=== PATIENT | female | born 1945 | race African-American/Black ===

== ENCOUNTER → 2023-10-11 11:17 | Outpatient (CLI) | payer MEDICARE, SELFPAY ==
--- NOTE | ~2023-10-11 | XR_ITS ---
XR chest 2V DATE: 10/11/2023 11:56 INDICATION: Productive cough for 11 days. Nonsmoker. TECHNIQUE: 2 views COMPARISON: None FINDINGS: Heart size is within normal range. Is aortic arch calcification, mild aortic unfolding. No hilar or mediastinal enlargement. The lungs appear moderately hyperinflated but clear of infiltrate or consolidation. No pleural effusion or pulmonary vascular congestion or pneumothorax. Osteopenia. Mild dextroscoliosis and degenerative spurring of the thoracic and lumbar spine IMPRESSION: Moderate hyperinflation; no active cardiopulmonary disease Aortic calcification Reviewed, dictated and finalized at location [facility]. [facility] [employer]
== END ==
PROVIDERS: PCP Nurse Practitioner Family; Visit Provider Nurse Practitioner Family
DX: R05.8 Other specified cough (principal); I70.0 Atherosclerosis of aorta; J98.4 Other disorders of lung
CPT/HCPCS: 71046

== ENCOUNTER 2025-03-05 14:32 | Emergency (ER) | payer MEDICARE, BC, SELFPAY ==
--- NOTE | 2025-03-05 14:38 | ED_ITS ---
HPI - General Adult General Chief complaint: Headache Stated complaint: headache/ balance is off Time Seen by Provider: 03/05/25 14:41 Source: patient, RN notes reviewed and old records reviewed Mode of arrival: ambulatory Limitations: no limitations History of Present Illness HPI narrative: 79-year-old female presents to the [facility] with complaints of a headache, feeling off balance, fatigue. Patient states has been getting worse for approximately 3 weeks. Has taken Tylenol Tried getting in with primary care, was told to come to the Urgent Care for an evaluation Denies any chest pain, shortness of breath. Related Data Allergies Allergy/AdvReac Type Severity Reaction Status Date / Time codeine Allergy Mild Itching Verified 03/05/25 15:18 Review of Systems Review of Systems: All systems reviewed & are unremarkable except as noted in HPI and below Constitutional: Constitutional: Reports no additional constitutional complaints ENT: Reports system reviewed and no additional complaints, except as documented Cardiovascular: Cardiovascular: Reports no additional cardiovascular complaints, Denies chest pain and Denies dyspnea Respiratory: Respiratory: Reports no additional respiratory complaints, Denies chest congestion, Denies cough and Denies dyspnea Musculoskeletal: Musculoskeletal: Reports no additional musculoskeletal complaints Integumentary/Breasts: Skin/Breast: Reports system reviewed and no additional complaints, except as docu Neurologic: Reports as per HPI PMFSH Comments At the time of my signature, I reviewed and agree with the nursing past medical, surgical, social, and family history. There is no relevant family history pertinent to the patient complaint. Exam Const: General: cooperative, healthy appearing, comfortable, no acute dist ress, well developed, alert and well nourished Nutritional Appearance: well nourished Orientation/consciousness: patient oriented x3 Limitations: no limitations HENMT: Head: normal to inspection Ears: hearing grossly normal bilaterally, external ears normal, TM's normal bilaterally, EAC's normal, mastoids normal and no periauricular adenopathy Throat: posterior oropharynx normal, uvula midline and no uvular edema Eyes: General: appearance normal, both eyes and all related structures Alignment and Position: alignment normal Neck: Neck: normal visual inspection, full ROM, no lymphadenopathy and no meningeal signs Chest: Chest palpation & inspection: normal inspection of the chest Resp: Effort & Inspection: normal respiratory effort and able to speak in complete sentences Auscultation: clear to auscultation bilaterally, no crackles, no rales, no rhonchi and no wheezes Cardio: Rate: bradycardic Skin: General skin exam: normal color and no rashes or lesions noted Neuro: General: patient oriented x3, gait normal, moves all extremities and no meningeal signs Cognition (Neuro): normal cognition Speech: normal speech Gait exam (Neuro): Normal gait present Extrem: General: normal to inspection, full ROM, capillary refill normal and normal gait Psych: Appearance: grossly normal and well kempt Mental Status: mental status grossly normal Speech and movement: Normal speech and movement present and Clear speech present Affect: normal affect Attitude: cooperative Course Course Level of Care: Express Care Visit Vital Signs Vital signs: Vital Signs Temperature 97.0 F L 03/05/25 14:43 Pulse Rate 46 L 03/05/25 14:43 Respiratory Rate 16 03/05/25 14:43 Blood Pressure 156/74 H 03/05/25 14:43 Pulse Oximetry 100 03/05/25 14:43 Oxygen Delivery Room Air 03/05/25 14:43 Temperature 97.0 F L 03/05/25 14:43 Pulse Rate 46 L 03/05/25 14:43 Respiratory Rate 16 03/05/25 14:43 Blood Pressure 156/74 H 03/05/25 14:43 Pulse Oximetry 100 03/05/25 14:43 Oxygen Delivery Room Air 03/05/25 14:43 Reviewed Medical Decision Making MDM Narrative Medical decision making narrative: Patient sitting comfortably in exam room. Nontoxic, vitals stable. Patient in no acute distress Patient presents with increasing symptoms of fatigue, headache, feeling extremely off balance. Sending patient for higher level of care due to probable symptomatic bradycardia Transfer instructions reviewed with patient go directly to the emergency room Offered EMS, patient declined. Wants her to deliver driver. All questions have been answered, and the patient deny any further questions Some parts of this dictation were generated by voice recognition software and may contain typographical and/or grammatical inaccuracies. Differential Diagnosis Differential Diagnosis: Symptomatic bradycardia, stroke neurologic issue, cardiac issue Medical Records Medical records reviewed: Yes I reviewed the external patient's medical records. Vital Signs Vital Signs: Vital Signs Temperature 97.0 F L 03/05/25 14:43 Pulse Rate 46 L 03/05/25 14:43 Respiratory Rate 16 03/05/25 14:43 Blood Pressure 156/74 H 03/05/25 14:43 Pulse Oximetry 100 03/05/25 14:43 Oxygen Delivery Room Air 03/05/25 14:43 Temperature 97.0 F L 03/05/25 14:43 Pulse Rate 46 L 03/05/25 14:43 Respiratory Rate 16 03/05/25 14:43 Blood Pressure 156/74 H 03/05/25 14:43 Pulse Oximetry 100 03/05/25 14:43 Oxygen Delivery Room Air 03/05/25 14:43 Reviewed Lab Data Lab results reviewed: Yes I reviewed the patient's lab results. Labs: Reviewed Critical Care Time Critical Care Time Critical Care Time: No Discharge Plan Discharge Clinical Impression: Bradycardia Patient Disposition: Acute Care Hospital Condition: Stable Patient Language: Occitan Follow-up/Referrals: Fatou,MARITA Mcarthur [Primary Care Provider] -
[2025-03-05 14:43] VITALS: BP 156/74; PULSE 46; RESP 16; TEMP 36.1; O2SAT 100
--- NOTE | 2025-03-05 15:04 | ECG_ITS ---
Test Date: 2025-03-05 14:49:45 Measurements Intervals [place] Rate: 49 P: 68 CT: 171 QRS: 2 QRSD: 113 T: 35 QT: 421 QTc: 380 Interpretive Statements SINUS BRADYCARDIA LEFT ATRIAL ENLARGEMENT INCOMPLETE RIGHT BUNDLE BRANCH BLOCK CONSIDER INFERIOR INFARCT, AGE INDETERMINATE POSSIBLE ANTERIOR MYOCARDIAL INFARCTION BORDERLINE ST-T WAVE ABNORMALITY- HIGH LATERAL LEADS ABNORMAL ECG No previous ECG available for comparison Electronically Signed On 03-08-2025 07:49:38 CDT by Rashaad Rowland D.O.
== END 2025-03-05 15:00 | disposition short-term general hospital (02) ==
LOC: EXPCOLL 14:36
PROVIDERS: Emergency Provider Nurse Practitioner; PCP Nurse Practitioner Family
DX: R00.1 Bradycardia, unspecified (principal); I10 Essential (primary) hypertension
CPT/HCPCS: 93005; 99203; G0463